=== PATIENT | male | born 1975 | race Caucasian/White ===

== ENCOUNTER 2018-06-22 16:05 | Outpatient (CLI) | payer MEDICAID | END 2018-06-22 16:06 | disposition EMS.NT | LOC: EMS 16:05 | PROVIDERS: ATTEND Surgery | DX: S99.912A Unspecified injury of left ankle, initial encounter (principal); W20.8XXA Other cause of strike by thrown, projected or falling object, initial encounter ==

== ENCOUNTER 2018-09-19 07:08 | Outpatient (CLI) | payer MEDICAID ==
[2018-09-20 14:52] LABS: HIV AG/AB 4TH GEN NON-REACTIVE (NON-REACTIVE)
[2018-09-21 11:47] LABS: HSV 1 IGG TYPE SPECIFIC AB 38.6 index; HSV 2 IGG TYPE SPECIFIC AB 1.46 index
== END 2018-09-19 23:59 | disposition home or self-care (01) ==
LOC: LAB.WCP 07:08
PROVIDERS: ATTEND Physician Assistant Medical
DX: Z20.2 Contact with and (suspected) exposure to infections with a predominantly sexual mode of transmission (principal)
CPT/HCPCS: 36415; 81599; 86592; 86695; 86696; 87389; 87491; 87591

== ENCOUNTER 2019-02-08 08:35 | Outpatient (CLI) | payer MEDICAID ==
[2019-02-09 12:27] LABS: HEPATITIS C ANTIBODY NON-REACTIVE (NON-REACTIVE)
[2019-02-09 15:11] LABS: HIV AG/AB 4TH GEN NON-REACTIVE (NON-REACTIVE)
[2019-02-10 12:51] LABS: HSV 1 IGG TYPE SPECIFIC AB 36.9 index; HSV 2 IGG TYPE SPECIFIC AB 1.16 index
== END 2019-02-08 08:36 | disposition home or self-care (01) ==
LOC: LAB.WCP 08:35
PROVIDERS: ATTEND Family Medicine
DX: Z11.3 Encounter for screening for infections with a predominantly sexual mode of transmission (principal)
CPT/HCPCS: 36415; 81599; 86592; 86695; 86696; 86803; 87389

== ENCOUNTER 2019-05-23 08:00 | Outpatient (CLI) | payer MEDICAID ==
[2019-05-23 12:27] LABS: BASOPHILS # (AUTO) 0.1 10^3/uL (0.0-0.1); BASOPHILS % (AUTO) 0.9 %; EOSINOPHILS # (AUTO) 0.1 10^3/uL (0.0-0.7); EOSINOPHILS % (AUTO) 1.6 %; HGB - HEMOGLOBIN 15.9 g/dL (14.0-18.0); LYMPHOCYTES # (AUTO) 1.7 10^3/uL (1.5-3.5); LYMPHOCYTES % (AUTO) 29.2 %; MEAN CORPUSCULAR HEMOGLOBIN 32.8 pg (27.0-31.0); MEAN CORPUSCULAR HGB CONC 34.9 g/dL (32.0-36.0); MEAN PLATELET VOLUME 11.2 fL (7.4-11.4); MONOCYTES # (AUTO) 0.4 10^3/uL (0.0-1.0); MONOCYTES % (AUTO) 7.3 %; NEUTROPHILS # (AUTO) 3.5 10^3/uL (1.5-6.6); NEUTROPHILS % (AUTO) 60.3 %; PLT - PLATELET COUNT 230 10^3/uL (130-450); RED BLOOD COUNT 4.85 10^6/uL (4.70-6.10); WHITE BLOOD COUNT 5.8 x10^3/uL (4.8-10.8)
[2019-05-23 12:54] LABS: ALBUMIN 4.5 g/dL (3.2-5.5); ALBUMIN/GLOBULIN RATIO 1.3 (1.0-2.2); BILIRUBIN,TOTAL 0.7 mg/dL (0.2-1.0); CALCIUM 9.7 mg/dL (8.5-10.3); CREATININE 1.1 mg/dL (0.6-1.2); TOTAL PROTEIN 8.1 g/dL (6.7-8.2)
== END 2019-05-23 23:59 | disposition home or self-care (01) ==
LOC: LAB.WCP 08:00
PROVIDERS: ATTEND Family Medicine
DX: R10.9 Unspecified abdominal pain (principal)
CPT/HCPCS: 36415; 80053; 82150; 83690; 85025

== ENCOUNTER 2019-05-30 06:07 | Outpatient (CLI) | payer MEDICAID ==
[2019-05-30] MEDS ORDERED: IOVERSOL 320 100 ML VIAL IVP ONE ×2 (06:33→09:27)
[2019-05-30] MEDS ORDERED: IOVERSOL 320 50 ML VIAL ONE (06:33)
--- NOTE | 2019-05-30 08:41 | CT Report ---
Reason: ABDOMINAL PAIN Procedure Date: 05/30/2019 Accession Number: [id number] / [id number] Procedure: CT - Abdomen/Pelvis W CPT Code: FULL RESULT: EXAM: CT ABDOMEN AND PELVIS EXAM DATE: 05/30/2019 07:29 AM. CLINICAL HISTORY: Abdominal pain. COMPARISONS: ABDOMEN/PELVIS W/ 01/27/2015 7:18 PM. TECHNIQUE: Routine helical CT imaging was performed through the abdomen and pelvis. IV contrast: OPTI 320 100 mL. Enteric contrast: No. Reconstructions: Coronal and sagittal. In accordance with CT protocol optimization, one or more of the following dose reduction techniques were utilized for this exam: automated exposure control, adjustment of mA and/or KV based on patient size, or use of iterative reconstructive technique. FINDINGS: Lung Bases: Unremarkable. Liver: Normal. No masses. Gallbladder/Bile Ducts: Unremarkable. Spleen: Normal. Pancreas: Normal. Adrenal Glands: Normal. Kidneys: Normal. No masses or hydronephrosis. Peritoneal Cavity/Bowel: Normal. No free fluid, free air or adenopathy. No masses or acute inflammatory process. The appendix is well visualized and normal. No evidence of appendicitis or diverticulitis. Pelvic Organs: Normal. The bladder and visualized pelvic organs are within normal limits. Vasculature: No aneurysms or other significant abnormality. Bones: No significant abnormality. Other: None. IMPRESSION: Normal abdomen and pelvis CT. RAD[facility]
[2019-05-30] MEDS ORDERED: IOVERSOL 320 50 ML VIAL PO ONE (09:27)
== END 2019-05-30 06:08 | disposition home or self-care (01) ==
LOC: DI 06:07
PROVIDERS: ATTEND Family Medicine
DX: R10.9 Unspecified abdominal pain (principal)
CPT/HCPCS: 74177; Q9967

== ENCOUNTER 2021-11-19 11:10 | Outpatient (CLI) | payer MEDICAID ==
--- NOTE | 2021-11-19 13:45 | XRAY Report ---
PROCEDURE: Cervical Spine 2 View INDICATIONS: NECK PAIN, CHRONIC TECHNIQUE: 3 view(s) of the cervical spine were acquired. COMPARISON: None. FINDINGS: Bones: No fractures or dislocations to the C7 level. The lateral masses of C1 appear intact on the odontoid view. No suspicious bony lesions. Moderate disc space narrowing and endplate osteophyte fo rmation at C4-C5 and C6-C7, indicating degenerative disc disease. Soft tissues: No prevertebral soft tissue swelling. IMPRESSION: Degenerative disc disease. No acute fracture. No osseous lesion. If symptoms and/or clin ical suspicion for pathology continue, further assessment with repeat plain films, or advanced imagin g (e.g., CT, MRI, or bone scan) is recommended for further assessment. Reviewed by: Luci Velazquez MD on 11/19/2021 1:44 PM PDT Approved by: Luci Velazquez MD on 11/19/2021 1:44 PM PDT Station ID: [id number]
--- NOTE | 2021-11-19 13:46 | XRAY Report ---
PROCEDURE: Lumbar Spine 2 View INDICATIONS: LOW BACK PAIN, CHRONIC TECHNIQUE: 3 views of the lumbar spine were acquired. COMPARISON: None. FINDINGS: Bones: 5 [id number] vertebrae are present. Mild endplate osteophyte formation throughout the m id and lower lumbar spine. There is normal bony alignment. No vertebral body compression fractures. No suspicious bony lesions. Soft tissues: Overlying bowel gas pattern is normal. No suspicious soft tissue calcifications. IMPRESSION: Mild multilevel degenerative disc disease. No acute fracture. No osseous lesion. If symp toms and/or clinical suspicion for pathology continue, further assessment with repeat plain films, or advanced imaging (e.g., CT, MRI, or bone scan) is recommended for further assessment. Reviewed by: Luci Velazquez MD on 11/19/2021 1:45 PM PDT Approved by: Luci Velazquez MD on 11/19/2021 1:45 PM PDT Station ID: [id number]
--- NOTE | 2021-11-19 13:46 | XRAY Report ---
PROCEDURE: Thoracic Spine 2 View INDICATIONS: BACK PAIN, THORACIC REGION TECHNIQUE: 2 views of the thoracic spine were acquired. COMPARISON: None. FINDINGS: Bones: No fractures or dislocations. No suspicious bony lesions. Visualized ribs are intact. Soft tissues: No paravertebral stripe thickening. IMPRESSION: No acute fracture. No osseous lesion. If symptoms and/or clinical suspicion for pathology continue, f urther assessment with repeat plain films, or advanced imaging (e.g., CT, MRI, or bone scan) is recom mended for further assessment. Reviewed by: Luci Velazquez MD on 11/19/2021 1:45 PM PDT Approved by: Luci Velazquez MD on 11/19/2021 1:45 PM PDT Station ID: [id number]
== END 2021-11-19 11:11 | disposition home or self-care (01) ==
LOC: DI.N 11:10
PROVIDERS: ATTEND Physician Assistant Medical
DX: M50.321 Other cervical disc degeneration at C4-C5 level (principal); M51.36 Other intervertebral disc degeneration, lumbar region

== ENCOUNTER 2022-04-11 05:58 | Emergency (ER) | payer MEDICAID ==
[2022-04-11 06:38] LABS: BASOPHILS # (AUTO) 0.1 10^3/uL (0.0-0.1); BASOPHILS % (AUTO) 0.7 %; EOSINOPHILS # (AUTO) 0.2 10^3/uL (0.0-0.7); EOSINOPHILS % (AUTO) 1.8 %; HCT - HEMATOCRIT 43.3 % (42.0-52.0); HGB - HEMOGLOBIN 15.4 g/dL (14.0-18.0); LYMPHOCYTES # (AUTO) 1.9 10^3/uL (1.5-3.5); LYMPHOCYTES % (AUTO) 21.3 %; MEAN CORPUSCULAR HEMOGLOBIN 32.8 pg (27.0-31.0); MEAN CORPUSCULAR HGB CONC 35.6 g/dL (32.0-36.0); MEAN CORPUSCULAR VOLUME 92.1 fL (80.0-94.0); MEAN PLATELET VOLUME 11.2 fL (7.4-11.4); MONOCYTES # (AUTO) 0.8 10^3/uL (0.0-1.0); MONOCYTES % (AUTO) 8.6 %; NEUTROPHILS # (AUTO) 5.9 10^3/uL (1.5-6.6); NEUTROPHILS % (AUTO) 67.1 %; PLT - PLATELET COUNT 209 10^3/uL (130-450); RED CELL DISTRIBUTION WIDTH 11.9 % (12.0-15.0); WHITE BLOOD COUNT 8.7 x10^3/uL (4.8-10.8)
[2022-04-11 06:39] LABS: BILIRUBIN,URINE NEGATIVE (NEGATIVE); GLUCOSE, URINE (UA) NEGATIVE (NEGATIVE); KETONES,URINE (UA) NEGATIVE (NEGATIVE); LEUKOCYTE ESTERASE, URINE NEGATIVE (NEGATIVE); NITRITE,URINE NEGATIVE (NEGATIVE); OCCULT BLOOD,URINE TRACE-INTA (NEGATIVE); PROTEIN,URINE NEGATIVE (NEGATIVE); UROBILINOGEN,URINE 0.2 (NORMAL) E.U./dL (NORMAL)
[2022-04-11 06:51] LABS: CLARITY,URINE CLEAR (CLEAR)
[2022-04-11 06:51] LABS: ALBUMIN 4.4 g/dL (3.2-5.5); ALBUMIN/GLOBULIN RATIO 1.4 (1.0-2.2); BILIRUBIN,TOTAL 0.4 mg/dL (0.2-1.0); CALCIUM 9.5 mg/dL (8.5-10.3); CREATININE 1.3 mg/dL (0.6-1.2); POTASSIUM 4.1 mmol/L (3.5-5.0); TOTAL PROTEIN 7.6 g/dL (6.7-8.2)
[2022-04-11] MEDS ORDERED: KETOROLAC 30 MG/ML VIAL IVP STA (07:21)
--- NOTE | 2022-04-11 08:08 | CT Report ---
PROCEDURE: Abdomen/Pelvis W INDICATIONS: RUQ pain CONTRAST: IV CONTRAST: Optiray 320 ml: 100 PO CONTRAST: *NO PO CONTRAST TECHNIQUE: After the administration of IV contrast, 5 mm thick sections acquired from the diaphragms to the symp hysis. 5 mm thick coronal and sagittal reformats were acquired. For radiation dose reduction, the f ollowing was used: automated exposure control, adjustment of mA and/or kV according to patient size. COMPARISON: 05/30/2019 FINDINGS: Image quality: Excellent. ABDOMEN: Lung bases: Lung bases are clear. Heart size is normal. Solid organs: Diffuse fatty liver infiltration can be seen. The liver demonstrates normal size and echogenicity. No liver lesions are detected. Gallbladder wall does not appear thickened. No inflammatory changes are seen surrounding the gallblad chaparro. Biliary system is non dilated. The spleen demonstrates normal size and demonstrates no suspicious le sions. Pancreas enhances normally. No adrenal nodules. Kidneys demonstrate normal size and enhancement, without hydronephrosis. There is a mildly hyperdens e cyst again seen along the lateral aspect of the right kidney measuring 25 Hounsfield units and 1 cm . Peritoneum and bowel: In this patient with this given history, scrutiny is given to the appendix and the right lower quadrant. There is a normal appendix seen, as on series 3 image 66. No focal right l ower quadrant inflammatory changes are seen. There is mild wall thickening seen involving the descending colon, with mild surrounding inflammatory change, with thickening of the fascial planes, as on series 6 image 24 and on series 3 image 50. Bowel loops otherwise demonstrate normal wall thickness and caliber. No free fluid or air. There is minimal diverticulosis seen, without findings of active diverticulitis. Nodes and vessels: No retroperitoneal or mesenteric adenopathy by size criteria. Aorta and inferior vena cava are normal in size. Incidental note is made of a circumaortic left renal vein. Miscellaneous: No ventral hernias. PELVIS: Genitourinary: Bladder wall thickness is normal. Miscellaneous: No inguinal hernias or adenopathy. Bones: No suspicious bony lesions. No vertebral body compression fractures. This patient has trans itional anatomy. For the purposes of this examination, the level with last pair of ribs is considered to be T12. By the summary scheme, the L5 level is partially sacralized, left worse than right. IMPRESSION: Mild focal colitis seen involving the descending colon. Please correlate with potential causes. No findings of perforation or abscess are seen. Normal appearing gallbladder by CT. Normal appendix. Incidental note is made of: Stable hyperdense right renal cyst Circumaortic left renal vein Minimal diverticulosis, without active diverticulitis Sacralized L5 level Reviewed by: Yuriy Byrnes MD on 04/11/2022 7:07 AM [facility]AD Approved by: Yuriy Byrnes MD on 04/11/2022 7:07 AM CHAD Station ID: [id number]
[2022-04-11] MEDS ORDERED: DEXAMETHASONE 10 MG/ML VIAL IV STA (08:36)
--- NOTE | 2022-04-11 08:51 | ED Physician Documentation ---
PD HPI ABD PAIN - Stated complaint Stated Complaint: RT SIDE PX - Chief complaint Chief Complaint: Abd Pain - History obtained from History obtained from: Patient, Family - Additional information Additional information: The patient comes to the emergency department chief complaint of right flank pain that has been going on for about the last 3 days. He states that initially, he thought perhaps it was just a pulled muscle but that it has persisted and hurts with movement and he was concerned that something else may be going on. He denies nausea or vomiting. No fever or chills. No hematuria or dysuria. No history of kidney stones. He states he has otherwise been feeling fairly well. He denies any direct injury or notably strenuous activity. Review of Systems Ten Systems: 10 systems reviewed and negative Constitutional: reports: Reviewed and negative Eyes: reports: Reviewed and negative Ears: reports: Reviewed and negative Nose: reports: Reviewed and negative Throat: reports: Reviewed and negative Cardiac: reports: Reviewed and negative Respiratory: reports: Reviewed and negative GI: reports: Abdominal Pain : reports: Reviewed and negative Skin: reports: Reviewed and negative Musculoskeletal: reports: Reviewed and negative Neurologic: reports: Reviewed and negative Psychiatric: reports: Reviewed and negative Endocrine: reports: Reviewed and negative Immunocompromised: reports: Reviewed and negative PD PAST MEDICAL HISTORY - Past Medical History Past Medical History: No - Past Surgical History Past Surgical History: Yes Ortho: Other - Present Medications Home Medications: Ambulatory Orders Medication Instructions Recorded Confirmed predniSONE [Deltasone] 60 mg PO DAILY 5 Days #15 tablet 04/11/22 - Allergies Allergies/Adverse Reactions: Allergies Allergy/AdvReac Type Severity Reaction Status Date / Time latex Allergy Hives Verified 04/11/22 06:19 - Social History Does the pt smoke?: No Smoking Status: Never smoker Does the pt drink ETOH?: Yes ETOH Use: Beer Does the pt have substance abuse?: No - Immunizations Immunizations are current?: No Immunizations: TDAP >10years/unknown - POLST Patient has POLST: No PD ED PE NORMAL - Vitals Vital signs reviewed: Yes - General General: Alert and oriented X 3, No acute distress, Well developed/nourished - HEENT HEENT: Atraumatic, PERRL, EOMI, Moist mucous membranes - Neck Neck: Supple, no meningeal sign - Cardiac Cardiac: RRR, No murmur, Strong equal pulses - Respiratory Respiratory: No respiratory distress, Clear bilaterally - Abdomen Abdomen: Soft, Non distended, Other (Tenderness along right flank, extending into right lower quadrant. No rebound or guarding.) - Back Back: No CVA TTP, No spinal TTP - Derm Derm: Normal color, Warm and dry, No rash - Extremities Extremities: No deformity, No edema - Neuro Neuro: Alert and oriented X 3 - Psych Psych: Normal mood, Normal affect Results - Vitals Vitals: Oxygen O2 Source Room air - Labs Labs: Laboratory Tests 04/11/22 04/11/22 04/11/22 06:25 06:30 06:30 WBC 8.7 RBC 4.70 Hgb 15.4 Hct 43.3 MCV 92.1 MCH 32.8 H MCHC 35.6 RDW 11.9 L Plt Count 209 MPV 11.2 Neut # (Auto) 5.9 Lymph # (Auto) 1.9 [place] # (Auto) 0.8 Eos # (Auto) 0.2 Baso # (Auto) 0.1 Absolute Nucleated RBC 0.00 Nucleated RBC % 0.0 Sodium 141 Potassium 4.1 Chloride 104 Carbon Dioxide 28 Anion Gap 9.0 BUN 20 Creatinine 1.3 H Estimated GFR (MDRD) 59 L Glucose 121 H Calcium 9.5 Total Bilirubin 0.4 AST 25 ALT 28 Alkaline Phosphatase 37 L Total Protein 7.6 Albumin 4.4 Globulin 3.2 Albumin/Globulin Ratio 1.4 Lipase 48 Urine Color YELLOW Urine Clarity CLEAR Urine pH 6.0 Ur Specific Stuart 1.025 Urine Protein NEGATIVE Urine Glucose (UA) NEGATIVE Urine Ketones NEGATIVE Urine Occult Blood TRACE-INTA Urine Nitrite NEGATIVE Urine Bilirubin NEGATIVE Urine Urobilinogen 0.2 (NORMAL) Ur Leukocyte Esterase NEGATIVE Ur Microscopic Review NOT INDICATED Urine Culture Comments NOT INDICATED - Rads (name of study) CT scan abdomen and pelvis Radiology: Final report received, EMP read indepedently, See rad report (No findings to explain patient's pain; Mild thickening left descending colon. No findings on right.) PD MEDICAL DECISION MAKING - ED course Complexity details: reviewed results, re-evaluated patient, considered differential, d/w patient ED course: The patient was worked up with labs and ultimately, CT scan of the abdomen and pelvis. Labs were unremarkable with a completely negative urinalysis and a normal white blood cell count in the serum. The CT scan showed some chronic, nonemergent findings, and some mild thickening of the descending colonic wall on the left. There were no findings on the right to explain patient's pain there. Patient had not had fevers or diarrhea and I did not feel that he clinically had colitis. I discussed with him that at this point in time, his symptoms and findings are most indicative of a musculoskeletal etiology. We have discussed home management of the symptoms as well as the usual indications for follow-up and return. Departure - Departure Disposition: 01 Home, Self Care Clinical Impression: Flank pain, acute Condition: Stable Instructions: ED Strain Abdominal Muscle Prescriptions: predniSONE [Deltasone] 60 mg PO DAILY 5 Days #15 tablet Comments: Your CT scan did not show any cause for your pain. A few incidental findings such as diverticuli, a chronic kidney cyst, and some thickening of your left large intestine were noted but nothing that indicates an acute issue. As such, it is most likely that your pain is due to a musculoskeletal inflammation. You may take ibuprofen 600 mg every 6 hours, as well as the prednisone that is been prescribed, for the next several days. It is advisable to stretch the area as well and you may also use ice and heat intermittently. Please follow-up with your primary care physician as needed. Ultimately, these symptoms should blow over on their own in time. Discharge Date/Time: 04/11/22 09:13
[2022-04-11 09:10] VITALS: BP 146/82
== END 2022-04-11 09:13 | disposition home or self-care (01) ==
LOC: ED 05:58
DX: R10.9 Unspecified abdominal pain (principal)
CPT/HCPCS: 36415; 74177; 80053; 81003; 83690; 85025; 96374; 99284; Q9967; 81001; 87086

== ENCOUNTER 2023-09-30 10:50 | Emergency (ER) | payer MEDICAID ==
--- NOTE | 2023-09-30 12:15 | XRAY Report ---
PROCEDURE: Chest 2V INDICATIONS: cough TECHNIQUE: 2 views of the chest were acquired. COMPARISON: None. FINDINGS: Surgical changes and devices: None. Lungs and pleura: No pleural effusions or pneumothorax. Lungs are clear. Mediastinum: Mediastinal contours appear normal. Heart size is normal. Bones and chest wall: No suspicious bony lesions. Overlying soft tissues appear unremarkable. IMPRESSION: No acute cardiopulmonary process. Reviewed by: Elian Pryor MD on 09/30/2023 12:14 PM PST Approved by: Elian Pryor MD on 09/30/2023 12:14 PM PST Station ID: [id number]
--- NOTE | 2023-09-30 12:32 | ED Physician Documentation ---
PD HPI CHEST PAIN - Stated complaint Stated Complaint: CP/TIGHTNESS CONGESTION - Chief complaint Chief Complaint: Cardiac - Additional information Additional information: 48-year-old male presents emergency department for cough and congestion. Patient said that he has been sick since about Tuesday, roughly 6 days ago. Since then he said that he has been laying in bed not moving he said that he has been drinking plenty of fluids taking supplements and cmnd-gyk-dhsybyc medications he said that he was starting to feel better yesterday but when he went to the store and came back you started to feel ill again. Patient's main concern is that he is getting pneumonia which is something that he had about a year ago Which he had about a year ago. Patient said he is unsure when he has last had a fever but he feels like over the last few days he has not had any fevers or chills. He is coughing up green phlegm in the morning and then it clears throughout the day. PD PAST MEDICAL HISTORY - Past Medical History Past Medical History: No Cardiovascular: None Respiratory: None Neuro: None Endocrine/Autoimmune: None GI: None : None HEENT: None Psych: None Musculoskeletal: None Derm: None - Past Surgical History Past Surgical History: Yes Ortho: Other - Present Medications Home Medications: Ambulatory Orders Medication Instructions Recorded Confirmed No Known Home Medications 09/30/23 09/30/23 - Allergies Allergies/Adverse Reactions: Allergies Allergy/AdvReac Type Severity Reaction Status Date / Time latex Allergy Hives Verified 09/30/23 11:33 - Social History Does the pt smoke?: No Smoking Status: Never smoker Does the pt drink ETOH?: Yes Does the pt have substance abuse?: No - Immunizations Immunizations are current?: No Immunizations: TDAP >10years/unknown - POLST Patient has POLST: No PD ED PE NORMAL - Vitals Vital signs reviewed: Yes - General General: Alert and oriented X 3 - HEENT HEENT: Atraumatic, PERRL, Moist mucous membranes - Neck Neck: No JVD - Cardiac Cardiac: RRR, No murmur - Respiratory Respiratory: No respiratory distress, Clear bilaterally Results - Vitals Vitals: Vital Signs - 24 hr 09/30/23 09/30/23 09/30/23 11:05 13:00 13:24 Temperature 36.7 C Heart Rate 77 74 74 Respiratory 16 18 16 Rate Blood Pressure 134/90 H 142/96 H O2 Saturation 99 96 Oxygen O2 Source Room air - Labs Labs: Laboratory Tests 09/30/23 11:43 Nasal Adenovirus (PCR) NOT DETECTED Nasal B. parapertussis DNA (PCR) NOT DETECTED Nasal Coronavir 229E PCR NOT DETECTED Nasal Coronavir HKU1 PCR NOT DETECTED Nasal Coronavir NL63 PCR NOT DETECTED Nasal Coronavir OC43 PCR NOT DETECTED Nasal Enterovir/Rhinovir PCR NOT DETECTED Nasal Influenza B PCR NOT DETECTED Nasal Influenza A PCR NOT DETECTED Nasal Parainfluen 1 PCR NOT DETECTED Nasal Parainfluen 2 PCR NOT DETECTED Nasal Parainfluen 3 PCR DETECTED A Nasal Parainfluen 4 PCR NOT DETECTED Nasal RSV (PCR) NOT DETECTED Nasal B.pertussis DNA PCR NOT DETECTED Nasal C.pneumoniae (PCR) NOT DETECTED Devonte Human Metapneumo PCR NOT DETECTED Nasal M.pneumoniae (PCR) NOT DETECTED Nasal SARS-CoV-2 (PCR) NOT DETECTED - Rads (name of study) Chest x-ray Relevant Findings:: Final report received, EMP independent interpretation of test (No consolidation, no cardiopulmonary abnormalities) PD Medical Decision Making - ED course ED course: This patient presents with symptoms suspicious for likely viral upper respiratory infection. Patient's main concern was pneumonia we completed a chest x-ray which did not reveal any consolidation or other signs of pneumonia. Based on history and physical doubt sinusitis. Do not suspect underlying cardiopulmonary process. I considered, but think unlikely, dangerous causes of this patients symptoms to include ACS, CHF or COPD exacerbations, pneumonia, pneumothorax. Patient is nontoxic appearing. Respiratory panel did test positive for parainfluenza. He was given these results and told that he needs to continue to move around frequently so that he is able to open and expand his lungs. Patient was trying to prevent coughing I informed the patient that coughing is important to prevent against getting pneumonia to fully expand and open up the lungs. He was given 1 DuoNeb treatment in the emergency department and said that he feels significantly better and safe for discharge at this time Departure - Departure Disposition: 01 Home, Self Care Clinical Impression: Parainfluenza Condition: Good Instructions: ED Flu Comments: Thank you for trusting us with your care. We have completed a chest x-ray which I have looked at it myself and there is no signs of pneumonia. Your respiratory panel did come back positive for parainfluenza which is a common virus. As we discussed it is important that you are getting out of bed opening up your lungs and eliciting a cough to prevent against getting pneumonia. Drink plenty of fluids which is sounds like you already doing a great job of eat a healthy well- balanced diet which also sounds you are doing a great job. Please come back to the emergency department if started to have any persistent fevers or chills, nausea vomiting diarrhea, or any other concerning symptoms. This will take time to fully recover I feel confident that you are on the road to recovery now that you are aware of ways to prevent against getting pneumonia. Forms: PCP List Discharge Date/Time: 09/30/23 13:35
[2023-09-30 12:41] LABS: B. PARAPERTUSSIS- RESP PCR PAN NOT DETECTED; B. PERTUSSIS- RESP PCR PANEL NOT DETECTED; C. PNEUMONIAE- RESP PCR PANEL NOT DETECTED; CORONAVIRUS 229E-RESP PCR NOT DETECTED; CORONAVIRUS HKU1-RESP PCR NOT DETECTED; CORONAVIRUS NL63-RESP PCR NOT DETECTED; CORONAVIRUS OC43-RESP PCR NOT DETECTED; HUMAN METAPNEUMOVIRUS NOT DETECTED; INFLUENZA A- RESP PCR PANEL NOT DETECTED; INFLUENZA B - RESP PCR PANEL NOT DETECTED; M. PNEUMONIAE- RESP PCR PANEL NOT DETECTED; PARAINFLUENZA VIRUS 1 NOT DETECTED; PARAINFLUENZA VIRUS 2 NOT DETECTED; PARAINFLUENZA VIRUS 3 DETECTED; PARAINFLUENZA VIRUS 4 NOT DETECTED; RHINOVIRUS/ENTEROVIRUS NOT DETECTED; RSV- RESP PCR PANEL NOT DETECTED; SARS-CoV-2 -RESP PCR PANEL NOT DETECTED
[2023-09-30] MEDS ORDERED: IPRATROPIUM/ALBUTEROL 3 ML NEB INH STA (12:52)
[2023-09-30 13:07] VITALS: BP 142/96; O2SAT 96
== END 2023-09-30 13:35 | disposition home or self-care (01) ==
LOC: ED 10:50
DX: B34.8 Other viral infections of unspecified site (principal); Z11.52 Encounter for screening for COVID-19
CPT/HCPCS: 87633; 94640; 94664; 99283; 99284